=== PATIENT | male | born 1985 | race Caucasian/White ===

== ENCOUNTER 2024-01-07 23:16 | Emergency (ER) | payer MEDICAID ==
[~2024-01-07] VITALS: Ht 182.9 cm; Wt 79.0 kg
[2024-01-07 23:26] VITALS: BP 125/82; TEMP 98.5; O2SAT 98
[2024-01-07 23:27] VITALS: PULSE 74; RESP 18
[2024-01-08] MEDS ORDERED: AMOX1TAB16 MT (00:06)
[2024-01-08] MEDS ORDERED: IBUP-2029 PO (00:06)
[2024-01-08] MEDS: KETOROLAC 60MG/2ML VIAL IM STA (01:33)
== END 2024-01-08 03:07 | disposition home or self-care (01) ==
LOC: ER 23:28
DX: K04.7 Periapical abscess without sinus (principal); K05.00 Acute gingivitis, plaque induced
CPT/HCPCS: 99283; 96372; J1885

== ENCOUNTER 2024-03-02 15:32 | Emergency (ER) | payer MEDICAID ==
[~2024-03-02] VITALS: Ht 182.9 cm; Wt 83.0 kg
[~2024-03-02 15:32] MED LIST: AMOX1TAB16 MT; IBUP-2029 PO
[2024-03-02 15:38] VITALS: BP 120/47; PULSE 60; TEMP 98.4; O2SAT 100
[2024-03-02] MEDS ORDERED: CLIN-194 MT (17:43)
[2024-03-02 17:50] VITALS: RESP 17
== END 2024-03-02 17:55 | disposition home or self-care (01) ==
LOC: ER 15:32
DX: K04.7 Periapical abscess without sinus (principal)
CPT/HCPCS: 99281